=== PATIENT | female | born 1950 | race Asian ===

== ENCOUNTER 2022-05-01 11:14 | Outpatient (CLI) | payer OTHER, MEDICAID | END 2022-05-01 19:26 | disposition home or self-care (01) | LOC: SUS 11:14 | DX: I70.202 Unspecified atherosclerosis of native arteries of extremities, left leg (principal); M87.052 Idiopathic aseptic necrosis of left femur | CPT/HCPCS: 93922 ==

== ENCOUNTER 2022-05-10 07:30 | Outpatient (CLI) | payer OTHER, MEDICAID | END 2022-05-10 16:00 | disposition home or self-care (01) | LOC: SRD 07:30 | PROVIDERS: ATTEND Obstetrics & Gynecology Gynecologic Oncology | DX: M87.052 Idiopathic aseptic necrosis of left femur (principal) | CPT/HCPCS: 78803; A9570; A9547 ==